=== PATIENT | female | born 1995 | race Caucasian/White ===

== ENCOUNTER → 2020-08-08 12:57 | Outpatient (CLI) | payer BC, SELFPAY ==
[2020-08-09 07:59] LABS: Covid-19 Nasal PCR Sendout P&C NEGATIVE
== END ==
PROVIDERS: PCP Family Medicine; Visit Provider Family Medicine
DX: Z03.818 Encounter for observation for suspected exposure to other biological agents ruled out (principal); R50.9 Fever, unspecified
CPT/HCPCS: U0004

== ENCOUNTER → 2021-08-14 13:18 | Outpatient (CLI) | payer OTHER, SELFPAY | PROVIDERS: PCP Family Medicine; Visit Provider Nurse Practitioner | DX: Z20.822 Contact with and (suspected) exposure to COVID-19 (principal) | CPT/HCPCS: C9803; U0003; U0005 ==

== ENCOUNTER 2021-10-26 08:12 | Emergency (ER) | payer BC, SELFPAY ==
[2021-10-26 08:13] VITALS: BP 129/86; PULSE 107; RESP 16; TEMP 37.1; O2SAT 99; BMI 34.3
--- NOTE | 2021-10-26 08:22 | ECG_ITS ---
APPROVED REPORT Exam: Resting ECG HR:90 bpm ECG Measurements Heart Rate 90 AXES SC 137 P 21 QRSd 77 QRS 44 QT 358 T 10 QTc 406 Conclusion SINUS RHYTHM NONSPECIFIC T-WAVE ABNORMALITY BORDERLINE ECG UNCONFIRMED REPORT Electronically signed by : Jacques Lennon MD 10/26/2021 17:27:22
--- NOTE | 2021-10-26 08:23 | [facility].EDGENADL ---
ED Disposition Clinical Impression: Diarrhea Qualifiers: Diarrhea type: unspecified type Qualified Code(s): R19.7 - Diarrhea, unspecified Hematuria Qualifiers: Hematuria type: unspecified type Qualified Code(s): R31.9 - Hematuria, unspecified Disposition: Home, Self-Care Condition on Discharge: Good Instructions: Diarrhea, Blood in Urine Additional Instructions: follow up pcp, return for worse Referrals: Alban May [Primary Care Provider] - - Critical Care Critical Care Time: No Attestation: On , the high probability of a clinically significant, sudden or life threatening deterioration of the following system(s) required my full and direct attention, intervention and personal management. The time I documented below is in addition to time spent performing reported procedures but includes the following listed in this critical care notation. Medical Decision Making - Medical Records Medical records reviewed: Yes: I reviewed the patient's medical records. - Coleman Inquiry Pt receiving controlled substance: No Vital Signs: 10/26/21 08:13 Temperature 98.7 F Temperature Source Oral Pulse Rate [Right Radial] 107 H Respiratory Rate 16 Blood Pressure [Right Arm] 129/86 Blood Pressure Mean [Right Arm] 100 Blood Pressure Source [Right Arm] Automatic Cuff Blood Pressure Position [Right Arm] Sitting 02 Sat by Pulse Oximetry 99 Oxygen Delivery Method Room Air - Lab Data Lab Results 10/26/21 08:30: WBC 7.2, RBC 5.21, Hgb 14.3, Hct 44.7, MCV 85.8, MCH 27.5, MCHC 32.0, RDW 13.3, Plt Count 310, MPV 8.1, Neut % (Auto) 75.9, Lymph % (Auto) 16.4, [place] % (Auto) 6.4, Eos % (Auto) 1.3, Baso % (Auto) 1.2, Neut # (Auto) 5.4, Lymph # (Auto) 1.2, [place] # (Auto) 0.5, Eos # (Auto) 0.1, Baso # (Auto) 0.1 10/26/21 08:30: Sodium 140, Potassium 3.7, Chloride 111 H, Carbon Dioxide 21 L, Anion Gap 11.7, BUN 8, Creatinine 0.70, Estimated Creat Clear 168, Estimated GFR 100, Est GFR ( Amer) 121, Glucose 91, Calcium 8.1 L, Total Bilirubin 0.7, AST 33, ALT 24, Alkaline Phosphatase 75, Total Protein 7.4, Albumin 4.2, Globulin 3.2, Albumin/Globulin Ratio 1.3 10/26/21 08:30: Serum HCG, Qual Negative 10/26/21 08:40: Urine Color Yellow, Urine Appearance Clear, Urine pH 5.5, Ur Specific Moran >= 1.030, Urine Protein Negative, Urine Glucose (UA) Negative, Urine Ketones Trace, Urine Blood 2+, Urine Nitrate Negative, Urine Bilirubin Negative, Urine Urobilinogen 0.2, Ur Leukocyte Esterase Trace, Urine RBC 5-10, Urine WBC 3-5, Ur Squamous Epith Cells 3-5, Urine Bacteria None Result diagrams: 10/26/21 08:30 10/26/21 08:30 Orders (Tests/Meds): ED MEDICATIONS Generic Name Dose Route Start Last Admin Trade Name Freq PRN Reason Stop Dose Admin Sodium Chloride 1,000 mls @ 999 mls/hr 10/26/21 08:30 10/26/21 08:36 Sod Chlor 0.9% 1000ml Bag IV 10/26/21 09:30 999 mls/hr .[id number] JOANIE Administration Discontinued Medications Generic Name Dose Route Start Last Admin Trade Name Freq PRN Reason Stop Dose Admin Dicyclomine HCl 20 mg 10/26/21 08:24 10/26/21 08:36 Dicyclomine 10mg Capsule PO 10/26/21 08:25 20 mg ONCE ONE Administration Ondansetron HCl 8 mg 10/26/21 08:23 10/26/21 08:36 Ondansetron 4mg/2ml Vial IV 10/26/21 08:24 8 mg ONCE ONE Administration ORDERS Category Date Time Status ECG Request by /Nse Stat Y 10/26/21 08:22 Ordered Medical Decision Narrative: ekg by me nsr, qrs narrow, no st elev reeval 0924 appears well, vss, feels better, ok with plan to f/u pcp General Adult HPI - General Stated complaint: diarrhea, fainting, abd pains Time Seen by Provider: 10/26/21 08:23 - History of Present Illness HPI narrative: syncopal episode today brief, resolved few days nausea/diarrhea, abd pain, seen by pcp yest outpt ct abd neg, rx levaquin for uti Onset (ago): hour(s) Radiation: non-radiation Severity: moderate Consistency: now resolved Relieving factors: rest Exacerbat
--- NOTE | 2021-10-26 08:45 | PC.NURSE ---
Pt in bathroom attempting to provide a urine sample at this time.
--- NOTE | 2021-10-26 08:47 | PC.NURSE ---
Urine sent to lab at this time.
[2021-10-26 08:49] LABS: Basophils # 0.1 K/mm3 (0-0.2); Basophils % 1.2 % (0.1-2.0); Eosinophils # 0.1 K/mm3 (0.0-0.4); Eosinophils % 1.3 % (0.1-12.0); Hematocrit 44.7 % (37.0-47.0); Hemoglobin 14.3 g/dL (12.2-16.2); Lymphocytes # 1.2 K/mm3 (0.7-4.5); Lymphocytes % 16.4 % (10-50); Mean Corpuscular Hemoglobin 27.5 pg (27.0-31.2); Mean Corpuscular Volume 85.8 fl (81-99); Mean Platelet Volume 8.1 fl (7.4-10.4); Monocytes # 0.5 K/mm3 (0.1-1.0); Monocytes % 6.4 % (1.7-9.3); Neutrophils # 5.4 K/mm3 (1.8-7.8); Neutrophils % 75.9 % (37.0-80.0); Platelet Count 310 K/mm3 (142-424); Red Blood Count 5.21 M/mm3 (4.20-5.40); Red Cell Distribution Width 13.3 % (11.5-17.5); White Blood Count 7.2 K/mm3 (4.8-10.8)
[2021-10-26 08:50] LABS: Microscopic, Urine URINE MICROSCOPIC (MICROSCOPIC)
[2021-10-26 08:51] LABS: Chloride 111 mmol/L (98-107); Potassium 3.7 mmoL/L (3.5-5.1); Sodium 140 mmol/L (136-145)
[2021-10-26 08:52] LABS: Appearance,Urine CLEAR (Clear); Bilirubin,Urine Negative (Negative); Blood, Urine 2+ (Negative); Color,Urine YELLOW (Yellow); Glucose,Urine (UA) Negative (Negative); Ketones,Urine TRACE (Negative); Leukocyte Esterase,Urine TRACE (Negative); Nitrate,Urine Negative (Negative); PH,Urine 5.5 (5.0-8.5); Protein,Urine Negative (Negative); Specific Gravity, Urine >= 1.030 (1.005-1.030); Urobilinogen,Urine 0.2 EU/dl (0.2)
[2021-10-26 08:53] LABS: Alanine Aminotransferase 24 U/L (12-78); Aspartate Amino Transferase 33 U/L (14-36); Blood Urea Nitrogen 8 mg/dl (7-17); Creatinine Clearance Estimated 168 mL/min (50-200); Estimated Glomerular Filt Rate 100 ml/min (>60); GFR (African American) 121 ML/MIN (>60)
[2021-10-26 08:54] LABS: Albumin Level 4.2 g/dl (3.5-5.0); Albumin/Globulin Ratio 1.3 (1.1-1.8); Alkaline Phosphatase 75 U/L (38-126); Anion Gap 11.7 mEq/L (5-15); Bilirubin,Total 0.7 mg/dl (0.2-1.3); Calcium 8.1 mg/dl (8.4-10.2); Carbon Dioxide 21 mmol/L (22.0-30.0); Globulin 3.2 g/dL (1.3-3.2); Glucose 91 mg/dl (74-100); Total Protein,Serum 7.4 g/dl (6.3-8.2)
[2021-10-26 09:00] LABS: HCG Qualitative, Serum Negative (Negative)
[2021-10-26 10:21] VITALS: BP 124/78; PULSE 94; RESP 16; TEMP 37.1; O2SAT 98
== END 2021-10-26 10:22 | disposition home or self-care (01) ==
PROVIDERS: Emergency Provider Emergency Medicine; PCP Family Medicine
DX: R55 Syncope and collapse (principal); R19.7 Diarrhea, unspecified; R31.9 Hematuria, unspecified; Z88.0 Allergy status to penicillin
CPT/HCPCS: 80053; 81001; 84703; 85025; 93005; 96365; 96375; 99284; J2405